=== PATIENT | male | born 1960 ===

== ENCOUNTER → 2017-07-14 | Outpatient (REF) | LOC: ZLAB.WCH 15:45 | DX: Z01.89 Encounter for other specified special examinations (principal) | CPT/HCPCS: G0103 ==

== ENCOUNTER → 2017-07-28 | Outpatient (REF) ==
[2017-07-28 08:42] LABS: IRON,SERUM 37 ug/dL (35-150)
[2017-07-28 09:19] LABS: FERRITIN 8 ng/mL (18-464)
[2017-07-28 09:30] LABS: TOTAL IRON BINDING CAPACITY 398 ug/dL (261-462)
== END ==
LOC: ZLAB.WCH 08:29
PROVIDERS: Family Medicine
DX: Z01.89 Encounter for other specified special examinations (principal)

== ENCOUNTER → 2017-08-19 | Outpatient (REF) ==
[2017-08-19 13:06] LABS: C-REACTIVE PROTEIN 0.6 mg/dL (0.0-0.9)
== END ==
LOC: ZLAB.WCH 12:36
PROVIDERS: Family Medicine
DX: Z01.89 Encounter for other specified special examinations (principal)